=== PATIENT | female | born 1960 | race Asian ===

== ENCOUNTER → 2017-02-05 | Outpatient (CLI) | payer OTHER | END | disposition home or self-care (01) | LOC: CFH 07:07 | PROVIDERS: ATTEND Family Medicine | DX: Z12.31 Encounter for screening mammogram for malignant neoplasm of breast (principal) | CPT/HCPCS: G0202 ==

== ENCOUNTER → 2017-08-10 | Outpatient (CLI) | payer OTHER | END | disposition home or self-care (01) | LOC: CFH 15:14 | PROVIDERS: ATTEND Family Medicine | DX: M25.542 Pain in joints of left hand (principal); R20.2 Paresthesia of skin | CPT/HCPCS: 72050 ==

== ENCOUNTER → 2018-02-11 | Outpatient (CLI) | payer OTHER | END | disposition home or self-care (01) | LOC: CFH 14:13 | PROVIDERS: ATTEND Family Medicine | DX: Z12.31 Encounter for screening mammogram for malignant neoplasm of breast (principal) | CPT/HCPCS: 77067 ==

== ENCOUNTER → 2018-08-02 | Outpatient (CLI) | payer OTHER | END | disposition home or self-care (01) | LOC: CFH 07:05 | PROVIDERS: ATTEND Family Medicine | DX: K82.4 Cholesterolosis of gallbladder (principal) | CPT/HCPCS: 76705 ==

== ENCOUNTER 2019-02-16 12:45 | Outpatient (CLI) | payer OTHER | END 2019-02-16 23:59 | disposition home or self-care (01) | LOC: CFH 12:45 | PROVIDERS: ATTEND Family Medicine | DX: Z12.31 Encounter for screening mammogram for malignant neoplasm of breast (principal) | CPT/HCPCS: 77067 ==

== ENCOUNTER 2020-12-27 15:18 | Outpatient (CLI) | payer OTHER | END 2020-12-27 23:59 | disposition home or self-care (01) | LOC: CFH 15:18 | PROVIDERS: ATTEND Family Medicine | DX: Z12.31 Encounter for screening mammogram for malignant neoplasm of breast (principal) | CPT/HCPCS: 77063; 77067 ==